=== PATIENT | male | born 1965 | race Caucasian/White ===

== ENCOUNTER 2023-07-18 21:34 | Emergency (ER) | payer BC, SELFPAY ==
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
[2023-07-19 00:14] VITALS: BP 147/74; O2SAT 95
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
== END 2023-07-18 23:47 | disposition home or self-care (01) ==
LOC: ER 21:34
DX: S32.009A Unspecified fracture of unspecified lumbar vertebra, initial encounter for closed fracture (principal); S22.31XA Fracture of one rib, right side, initial encounter for closed fracture; V43.52XA Car driver injured in collision with other type car in traffic accident, initial encounter; Z87.891 Personal history of nicotine dependence
CPT/HCPCS: 71045; 72131; 72170; 99283